=== PATIENT | female | born 1980 ===

== ENCOUNTER 2025-04-01 13:14 | Outpatient (CLI) | payer OTHER, SELFPAY | END 2025-04-01 13:15 | disposition home or self-care (01) | LOC: NFLDREF 04-08 00:43 | PROVIDERS: Visit Provider Registered Nurse | DX: R39.9 Unspecified symptoms and signs involving the genitourinary system (principal) | CPT/HCPCS: 87086 ==

== ENCOUNTER 2025-04-07 09:50 | Outpatient (CLI) | payer OTHER, SELFPAY ==
--- NOTE | 2025-04-07 10:00 | CRLHL7_ITS ---
For Patients: As a result of the Century Cures Act, medical imaging exams and procedure reports are released immediately into your electronic medical record. You may view this report before your referring provider. If you have questions, please contact your health care provider. INDICATION: Leiomyoma of uterus COMPARISON: 03/11/2025 TECHNIQUE: 2D balderas-scale and color Doppler images were acquired of the pelvis using a transabdominal and transvaginal approach. Transvaginal imaging performed to better visualize the endometrial stripe and ovaries. FINDINGS: Intramural fibroid is present with heterogeneous echotexture measuring 3.0 x 2.5 x 2.9 cm. This abuts the endometrium. Uterus measures 8.2 cm in length by 5.7 cm in AP diameter by 5.0 cm in transverse dimension. Endometrium measures approximately 2 millimeters. Nonvascular material within the endometrial canal noted. The endometrium is distended up to 1.4 cm. The right ovary measures 3.8 x 1.8 x 1.9 cm in size and the left ovary measures 4.3 x 1.6 x 1.8 cm. The ovaries demonstrate normal arterial and venous blood flow on color Doppler analysis. There are no suspicious fluid collections within the cul-de-sac. Simple cyst in the left ovary measures 1.7 cm. IMPRESSION: Blood products including blood clot within the endometrial canal. Intramural fibroid measures 3.0 cm. Dictated by Marcos Swann MD @ 04/07/2025 11:03:43 AM (Electronically Signed)
== END 2025-04-07 09:51 | disposition home or self-care (01) ==
LOC: US 09:51
PROVIDERS: Visit Provider Obstetrics & Gynecology
DX: D25.9 Leiomyoma of uterus, unspecified (principal)
CPT/HCPCS: 76830; 76856

== ENCOUNTER 2025-04-22 07:45 | Day surgery (SDC) | payer OTHER, SELFPAY ==
[2025-04-22] VITALS (8 sets, daily range): BP systolic 107–128; BP diastolic 79–88; PULSE 70–91; RESP 16; TEMP 36.4; O2SAT 93–98; BMI 25.4
[2025-04-22] MEDS: LACTATED RINGERS 1000 ML 1,000 ML 100 ML IV (08:15)
[2025-04-22] MEDS: SODIUM CHLORIDE 0.9 % (FLUSH) 10 ML SYRINGE IVF (08:15)
--- NOTE | 2025-04-22 08:19 | W.PM.H&PU ---
History & Physical Update History & Physical Update H&P Reviewed and patient assessed: No changes noted H&P Updates: Ms. Jackson is seen in pre-op prior to planned diagnostic hysteroscopy, dilation and curettage, possible myomectomy and IUD insertion. No interval change to her health history or questions today. We again reviewed the risks, benefits and alternatives to the planned procedure. Written consent was re-signed. Post-procedure restrictions and expectations reviewed. Pre-op labs reviewed and are within normal limits. No UPT as s/p bilateral tubal ligation. No perioperative antibiotics indicated.
[2025-04-22 08:35] LABS: Hemoglobin* 14.3 gm/dL (12.0-16.0)
[2025-04-22] MEDS: BUPIVACAINE 0.5% 30 ML INJECTION (08:50)
--- NOTE | 2025-04-22 09:33 | P.ANES_ITS ---
Anesthesia Charges Start Date/Time Anesthesia Start Date: 04/22/25 Anesthesia Start Time: 08:33 Stop Date/Time Anesthesia Stop Date: 04/22/25 Anesthesia Stop Time: 09:30 Coding CPT Codes CPT Codes: ANESTH SURGERY OF ABDOMEN - 45174 ([id number]) P2 - PATIENT W/MILD SYST DISEASE, QK - FRAMING CONSULTANT 2-4 CNCRNT ANES PROC, QX - MINE SHIFTER SVC W/ MD MED DIRECTION
--- NOTE | 2025-04-22 09:33 | W.ANESCHARGE ---
Anesthesia Charges Start Date/Time Anesthesia Start Date: 04/22/25 Anesthesia Start Time: 08:33 Stop Date/Time Anesthesia Stop Date: 04/22/25 Anesthesia Stop Time: 09:30 Coding CPT Codes CPT Codes: ANESTH SURGERY OF ABDOMEN - 46847 ([id number]) P2 - PATIENT W/MILD SYST DISEASE, QK - PHARMACIST AIDE 2-4 CNCRNT ANES PROC, QX - MENTAL HEALTH AIDE SVC W/ MD MED DIRECTION
--- NOTE | 2025-04-22 09:37 | W.PM.GYNPROC ---
Procedure Note Time Seen by Provider: 09:39 Date of procedure: 04/22/25 Will [facility] bill your pro fee for this procedure?: Yes Pre-op diagnosis: Abnormal uterine bleeding Fibroid uterus Procedure: Diagnostic hysteroscopy Hysteroscopic myomectomy Mirena IUD insertion Anesthesia: MAC and local Complications: None Surgeon: Oliver Fairchild MD Estimated blood loss (mL): 50 IV fluids (mL): 450 Urine Output (mL): 25 Pathology: specimen obtained, sent to pathology Condition: stable Disposition: same day Findings: Approximately 1.5 cm submucosal fibroid of the anterior uterus, tiny (3mm) suspected fibroid noted at the left tubal ostia Otherwise inactive appearing endometrium Arcuate appearance of the uterine fundus Normal bilateral tubal ostia Procedure Description: Procedure in detail: Patient was taken to the operating room with IV running. She was positioned in dorsal lithotomy position with her legs fully supported in Yellofin stirrups. Monitored anesthesia care was administered. She was prepped and draped in the usual sterile fashion. Exam under anesthesia was performed for the above-noted findings. Speculum was inserted. Cervix visualized and grasped along the anterior lip with a single-tooth tenaculum. Paracervical block was performed in the usual fashion with 0.5% bupivacaine, total 20 mL. Cervix was serially dilated to accommodate the TRUCLEAR hysteroscope. This was assembled with saline inflow and outflow in place. The line was flushed of bubbles. The hysteroscope was advanced through the cervix into the endometrial cavity for the above noted findings. Given submucosal fibroid, we removed the hysteroscope and upsized the scope to accommodate the dense tissue blade. Solution of dilute vasopressin (20u in 100mL saline) was requested and injected intracervical in all 4 quadrants making care to avoid cervical vessels at 3 and 9 o'clock, total 10cc. Cervix was dilated to accommodate the larger hysteroscope. The hysteroscope was advanced into the endometrial cavity, dense tissue blade was then inserted through the operating channel. Window lock was performed. Under direct visualization, the anterior submucosal fibroid was resected completely. Small volume bleeding was noted, but visualization could be easily restored with flushing the endometrial cavity and use of suction. At completion of resection, no further fibroid tissue could be visualized and uatsdin of the normal endometrial cavity was noted. The tiny suspected fibroid at the left tubal ostia was attempted to be hysteroscopic we resected, though the dense tissue blade tip did not allow for complete removal. Hysteroscope was removed. Uterus sounded to 8cm. Mirena IUD was sterilely open, loaded and inserted to the sounding depth. IUD was deployed at the fundus, insertion to being removed. The smaller hysteroscope was utilized to confirm proper positioning at the midline of the uterine cavity at the uterine fundus, where excellent positioning was noted. Care was made to remove the hysteroscope without disturbing the IUD placement. Tenaculum was removed from the anterior lip of cervix. Hemostasis was achieved with gentle pressure and silver nitrate at tenaculum site. Excellent hemostasis was noted. Surgical debrief completed - EBL approximately 50mL, IV crystalloid 450mL, UOP 25mL, fluid deficit 400mL. Pathology is submucosal fibroid, sent for evaluation. Patient tolerated procedure well. She was taken to recovery area in stable condition.
--- NOTE | 2025-04-22 11:04 | SUR.PHASEII ---
pt doing well. tolerated toast and water. minimal abd cramps. reviewed d/c instructions with pt and . All questions answered. Pt and verbalized ready for discharge. Pt ambulated out to car with .
--- NOTE | 2025-04-22 11:14 | P.ANES_ITS ---
Anesthesia Charges Start Date/Time Anesthesia Start Date: 04/22/25 Anesthesia Start Time: 08:33 Stop Date/Time Anesthesia Stop Date: 04/22/25 Anesthesia Stop Time: 09:30 Coding CPT Codes CPT Codes: ANESTH SURGERY OF ABDOMEN - 27521 ([id number]) QK - CAMPUS RECRUITER 2-4 CNCRNT ANES PROC, QX - COMMERCIAL HVAC SERVICE TECHNICIAN SVC W/ MD MED DIRECTION, P2 - PATIENT W/MILD SYST DISEASE
--- NOTE | 2025-04-22 11:14 | W.ANESCHARGE ---
Anesthesia Charges Start Date/Time Anesthesia Start Date: 04/22/25 Anesthesia Start Time: 08:33 Stop Date/Time Anesthesia Stop Date: 04/22/25 Anesthesia Stop Time: 09:30 Coding CPT Codes CPT Codes: ANESTH SURGERY OF ABDOMEN - 60911 ([id number]) QK - HEADING UP MACHINE OPERATOR 2-4 CNCRNT ANES PROC, QX - DOCUMENTATION LIAISON SVC W/ MD MED DIRECTION, P2 - PATIENT W/MILD SYST DISEASE
== END 2025-04-22 11:08 | disposition home or self-care (01) ==
PROVIDERS: Visit Provider Obstetrics & Gynecology
PROC: 0UDB8ZZ Extraction of Endometrium, Via Natural or Artificial Opening Endoscopic (ICD-10-PCS; CPT 58558; principal; 2025-04-22 09:00)
DX: N93.8 Other specified abnormal uterine and vaginal bleeding (principal); D25.0 Submucous leiomyoma of uterus; Z30.430 Encounter for insertion of intrauterine contraceptive device
CPT/HCPCS: 58561; 58300; 00860; 00952; 36415; 85018; 86850; 86900; 86901; 88305; C1782; J0665; J1100; J1885; J2250; J2371; J2405; J2704; J3010; J7120; J7298